=== PATIENT | male | born 1990 | race Caucasian/White ===

== ENCOUNTER 2017-09-01 06:42 | Day surgery (SDC) | payer OTHER ==
[~2017-09-01 06:42] MED LIST: CARBOXYMETHYLCELLULOSE SOD 0.5% 0.4 ML DROPERETTE ONE; CEFAZOLIN 2 GM/D5W RTU 2 GM/50 ML RTUPB IV PRN; DEXAMETHASONE SOD PHOS INJ 10 MG/1 ML VIAL ONE; DEXMEDETOMIDINE INJ 80 MCG/20 ML VIAL IV ONE; DIPHENHYDRAMINE HCL 50 MG/ML VIAL ONE; FENTANYL CITRATE INJ/PF 100 MCG/2 ML AMPUL ONE; LIDOCAINE 2% INJ-PF (20 MG/ML) 10 ML AMPUL ONE; MIDAZOLAM 2 MG/2 ML INJ ONE; ONDANSETRON HCL INJ/PF 4 MG/2 ML SDV ONE; PROPOFOL INJ 200 MG/20 ML VIAL IV ONE; ROCURONIUM BROMIDE INJ 50 MG/5 ML VIAL IV ONE; SUCCINYLCHOLINE CHLORIDE INJ 200 MG/10 ML VIAL ONE
[2017-09-01] MEDS ORDERED: OXYMETAZOLINE HCL 0.05% NASAL SPRAY 15 ML BOTTLE ONE ×2 (07:08→09:01)
[2017-09-01] MEDS ORDERED: GLYCOPYRROLATE INJ 0.4 MG/2 ML VIAL ONE (07:23)
[2017-09-01] MEDS ORDERED: FAMOTIDINE INJ/PF 20 MG/2 ML SDV IV ONE (07:32)
[2017-09-01] MEDS: BUPIVACAINE HCL 0.5%-EPI 1:200000 INJ/PF 30 ML VIAL ONE ×2 (07:59→08:57)
[2017-09-01] MEDS ORDERED: MORPHINE SULFATE 10 MG/ML INJ ONE (10:38)
[2017-09-01] MEDS: FENTANYL CITRATE INJ/PF 100 MCG/2 ML AMPUL ONE ×4 (11:19→11:31)
[2017-09-01] MEDS ORDERED: OXYCODONE-ACETAMINOPHEN 5-325 MG TABLET ONE (11:59)
--- NOTE | 2017-09-03 21:28 | [facility] OPERATIVE REPORT E ---
[facility] Operative Report NAME: NORA REGALADO AGE: 27Y DATE OF SURGERY: 09/01/2017 ROOM: PREOPERATIVE DIAGNOSES: 1. NASAL DEFORMITIES, ACQUIRED. 2. NASAL SEPTAL DEVIATION, ACQUIRED. 3. CHRONIC NASAL DYSPNEA. 4. BILATERAL INFERIOR TURBINATE HYPERTROPHY. POSTOPERATIVE DIAGNOSES: 1. NASAL DEFORMITIES, ACQUIRED. 2. NASAL SEPTAL DEVIATION, ACQUIRED. 3. CHRONIC NASAL DYSPNEA. 4. BILATERAL INFERIOR TURBINATE HYPERTROPHY. OPERATIONS: 1. Primary endonasal septorhinoplasty addressing the bony nasal pyramid and cartilaginous components. 2. Bilateral inferior turbinate reduction using a submucous resection technique. SURGEON: PAT JARVIS D.O. ANESTHESIA: General endotracheal tube. ANESTHESIA STAFF: Ksehia Andrade CRNA ESTIMATED BLOOD LOSS: 75 mL. FLUIDS: 1300 mL. COMPLICATIONS: None. DRAINS: None. SPONGE COUNT: Verified. NEEDLE COUNT: Verified. MATERIALS FORWARDED SPECIMEN: None. FINDINGS: 1. Nasal septal deviation to the right involving bone and cartilage along with a right nasal septal bowing deformity. 2. Left external nasal deviation involving bone and cartilage. 3. Aeqv-mjgrfjh-jyzo-right inferior turbinate hypertrophy. 4. Nasal dorsal deformities involving bone and cartilage. 5. Skin/soft tissue envelope deformities in the nasal/glabellar area from previous facial/nasal trauma. 6. Nasal septal cartilage margin was displaced to the left into the left nasal vestibule. 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 The patient had been referred for, and he complained of, a history of chronic nasal dyspnea and history of repeated nasal trauma over the years. The patient is also with nasal septal deformities and bilateral inferior turbinate hypertrophy. The patient was trialed on nasal sprays/steroids over the years which were not been helpful. The patient has desired to undergo nasal surgery to move beyond his nasal air flow difficulty and improve his functional nasal air flow. After extensive discussion with the patient, recommendation and plan was made to proceed with a primary endonasal septorhinoplasty and bilateral inferior turbinate reduction. He voiced an understanding of the described surgical plan, agreed to proceed, and consent was obtained. PROCEDURE: The patient was taken to the main operating room and was placed on the operating room table in the supine position. Appropriate monitor placed. Using mask and IV access, general anesthesia was induced. The patient was transorally intubated without difficulty. At this point, the patient underwent a nasal examination with injection of local anesthetic with epinephrine to establish a nasal block. Two Afrin-soaked neuro patties were placed per nasal passage. The patient was then prepped and draped in the usual fashion for nasal surgery. The neuro patties were removed, and the patient underwent a hemitransfixion incision with elevation of the mucoperichondrial and periosteal flaps without difficulty. The bony cartilaginous junction was identified and divided with the most deviated portions of septal bone and cartilage removed without difficulty. There was a greater than 1.5 x 1.5 cm cartilaginous L-strut that was preserved. The septum was freed from the maxillary crest with excess cartilage trimmed. At this point, attention was turned to the inferior turbinates. At this point, the bilateral inferior turbinate reduction was addressed in the following manner. A turbinate bipolar wand was used to make 2-3 passes in each inferior turbinate. Next, the anterior aspect was entered with a pair of Binu scissors followed by use of a Thomas to perform submucous elevation. Next, a turbinate microdebrider system at a setting of 1500 rpm was used to perform submucous resection on each side. Last, a Hector elevator was used to outfracture each inferior turbinate. The anterior aspect of turbinate bone, approx. 1 cm, was removed on each side. At this point, excess/redundant mucosa was trimmed with margins reapproximated with chromic suture. At this point, the rhinoplasty portion of the case was addressed in the following manner. The lateral nasal sidewall was entered with a pair of Binu scissors followed by use of a Donnie elevator to create subperiosteal tunnels for the osteotomes. There were intracartilaginous incisions made on each side to allow access to the nasal dorsum with tissue elevated in subperichondrial and subperiosteal planes. Once complete, there was dorsal rasp work that was performed. Next, there were bilateral osteotomies performed consisting of medial, lateral and central osteotomies which were all performed without difficulty. There was a stab incision performed at the nasal dorsum to the left aspect of the radix to allow for central osteotomies to be performed. At this point, the bony nasal pyramid was mobilized and repositioned into the midline. There was a precise pocket that was created between the medial crura, and the caudal septum margin after it had been trimmed was repositioned into the midline into this precise pocket and fixed at the anterior nasal spine using 5-0 nylon suture. There was nasal saline irrigation performed within the nose which was suctioned, and adequate hemostasis was noted. There was cartilage placed back between the mucosal flaps to be banked. Redundant septal mucosa/tissue was trimmed followed by reapproximation of all incisions with chromic suture. Once complete, there were Ruano splints with bacitracin ointment placed, one per side, and these were secured at the caudal aspect with 4-0 Prolene suture. Surgicel was also used as absorbable packing within the nose on each side and for stabilization. The dorsal stab incision was re-approximated to 6-0 Prolene. At this point, the patient's nose was cleaned and dried. Next, Mastisol, Steri-Strips, and an aluminum dorsal splint were placed without difficulty. The patient was then returned to the anesthesia staff and was allowed to emerge from general anesthesia. The patient was extubated in the main operating room and was then transported to the postanesthesia recovery unit in stable condition. There were no complications. DICTATING PHYSICIAN: PAT JARVIS D.O. [id number] APOORVA#: [id number] ID: [id number] JOB#: [id number] ACCT: [id number] cc:PAT JARVIS D.O. > MTDD
== END 2017-09-01 12:35 | disposition home or self-care (01) ==
LOC: SC 06:42
PROVIDERS: ATTEND Otolaryngology
PROC: 09SM0ZZ Reposition Nasal Septum, Open Approach (ICD-10-PCS; 2017-09-01)
PROC: 09TL8ZZ Resection of Nasal Turbinate, Via Natural or Artificial Opening Endoscopic (ICD-10-PCS; principal; 2017-09-01 07:30)
DX: J34.3 Hypertrophy of nasal turbinates (principal); M95.0 Acquired deformity of nose; J34.2 Deviated nasal septum; R06.09 Other forms of dyspnea; J34.89 Other specified disorders of nose and nasal sinuses; R04.0 Epistaxis
CPT/HCPCS: 30140; 30420; J2250; J3490 ×4; J3010; J2270; J0330; J2405; J2704; S0028; J1100; J0690; 160; J1200